=== PATIENT | male | born 1940 | race Caucasian/White ===

== ENCOUNTER 2017-12-29 09:17 | Outpatient (REF) | payer MEDICARE, BC, SELFPAY ==
[2017-12-29 23:01] LABS: ALT 43 U/L (12-78); AST 28 U/L (15-37); Albumin 4.7 g/dL (3.4-5.0); Alkaline Phosphatase 79 U/L (46-116); BUN 19 mg/dL (7-18); Bilirubin, Total 0.6 mg/dL (0.2-1.0); CREATININE 0.92 mg/dL (0.70-1.30); Calcium 9.5 mg/dL (8.5-10.1); Chloride 102 mmol/L (98-107); Glucose 115 mg/dL (70-100); Potassium 4.4 mmol/L (3.5-5.1); Sodium 140 mmol/L (136-145); Total Protein 8.3 g/dL (6.4-8.2)
== END 2017-12-29 09:37 ==
LOC: NCHCN 09:17
PROVIDERS: PCP Family Medicine; Visit Provider Family Medicine
DX: E11.9 Type 2 diabetes mellitus without complications (principal); E78.5 Hyperlipidemia, unspecified
CPT/HCPCS: 80053

== ENCOUNTER 2018-10-11 11:05 | Outpatient (REF) | payer MEDICARE, BC, SELFPAY ==
[2018-10-11 22:43] LABS: COMMENT (LAB VIEW ONLY) 73.75 mg/dL
== END 2018-10-11 11:25 ==
LOC: NCHCN 11:05
PROVIDERS: PCP Family Medicine; Visit Provider Family Medicine
DX: E11.9 Type 2 diabetes mellitus without complications (principal)
CPT/HCPCS: 82043; 82570

== ENCOUNTER 2018-10-24 15:20 | Outpatient (REF) | payer MEDICARE, BC, SELFPAY ==
[2018-10-24 21:30] LABS: Anion Gap 10.7 mmol/L (3-11); BUN 21 mg/dL (7-18); CO2 26.3 mmol/L (21.0-32.0); CREATININE 1.08 mg/dL (0.70-1.30); Calcium 9.4 mg/dL (8.5-10.1); Chloride 103 mmol/L (98-107); Glucose 109 mg/dL (70-100); Potassium 4.1 mmol/L (3.5-5.1); Sodium 140 mmol/L (136-145)
== END 2018-10-24 15:40 ==
LOC: NCHCN 15:20
PROVIDERS: PCP Family Medicine; Visit Provider Family Medicine
DX: E11.9 Type 2 diabetes mellitus without complications (principal)
CPT/HCPCS: 80048

== ENCOUNTER 2019-12-26 11:33 | Outpatient (REF) | payer MEDICARE, BC, SELFPAY ==
[2019-12-26 22:00] LABS: COMMENT (LAB VIEW ONLY) 98.45 mg/dL; Microalb ug/mg Crea 15.1 ug/mg Cr
== END 2019-12-26 11:53 ==
LOC: NCHCN 11:33
PROVIDERS: PCP Family Medicine; Visit Provider Family Medicine
DX: E11.9 Type 2 diabetes mellitus without complications (principal)
CPT/HCPCS: 82043; 82570

== ENCOUNTER 2020-05-28 15:24 | Outpatient (REF) | payer MEDICARE, BC, SELFPAY ==
[2020-05-28 15:05] LABS: ALT 24 U/L (16-63); AST 16 U/L (15-37); Albumin 3.9 g/dL (3.4-5.0); Alkaline Phosphatase 108 U/L (46-116); Anion Gap 10.7 mmol/L (3-11); BUN 25 mg/dL (7-18); Bilirubin, Total 0.3 mg/dL (0.2-1.0); CO2 24.3 mmol/L (21.0-32.0); CREATININE 1.4 mg/dL (0.70-1.30); Calcium 9.3 mg/dL (8.5-10.1); Chloride 104 mmol/L (98-107); Estimated GFR 49.01 (mL/min/1.73m2); Glucose 114 mg/dL (74-106); Potassium 5.1 mmol/L (3.5-5.1); Sodium 139 mmol/L (136-145); Total Protein 8.3 g/dL (6.4-8.2)
[2020-05-28 15:20] LABS: Hemoglobin A1C 7.3 % (<5.7)
== END 2020-05-28 15:25 | disposition home or self-care (01) ==
LOC: NCHCN 15:24
PROVIDERS: PCP Family Medicine; Visit Provider Family Medicine
DX: E11.9 Type 2 diabetes mellitus without complications (principal); C67.9 Malignant neoplasm of bladder, unspecified; E66.9 Obesity, unspecified
CPT/HCPCS: 80053; 83036

== ENCOUNTER 2021-07-15 14:59 | Outpatient (REF) | payer MEDICARE, BC, SELFPAY ==
[2021-07-15 17:02] LABS: COMMENT (LAB VIEW ONLY) 54.07 mg/dL; Microalb ug/mg Crea 9.4 ug/mg Cr
== END 2021-07-15 15:00 | disposition home or self-care (01) ==
LOC: NCHCN 14:59
PROVIDERS: PCP Family Medicine; Visit Provider Family Medicine
DX: E11.9 Type 2 diabetes mellitus without complications (principal)
CPT/HCPCS: 82043; 82570

== ENCOUNTER 2022-07-31 15:28 | Outpatient (REF) | payer MEDICARE, BC, SELFPAY ==
[2022-07-31 15:55] LABS: COMMENT (LAB VIEW ONLY) 84.77 mg/dL; Microalb ug/mg Crea 37.2 ug/mg Cr
== END 2022-07-31 15:29 | disposition home or self-care (01) ==
LOC: NCHCN 15:28
PROVIDERS: PCP Family Medicine; Visit Provider Family Medicine
DX: E11.9 Type 2 diabetes mellitus without complications (principal)
CPT/HCPCS: 82043; 82570

== ENCOUNTER 2023-02-16 11:17 | Outpatient (REF) | payer MEDICARE, BC, SELFPAY ==
--- OUTSIDE RECORDS SUMMARY | 2023-02-16 11:20 | XMS_ITS | CCD ---
Author Name Unknown Address [address] [place] [address] [phone] Organization Unknown Address [address] [place], [place] [id number] Care Team Providers Care Slip Operator Name Role Phone KEIRY KELLY Attending Physician [phone] Vital Signs Unknown or Not Available. Allergies Allergy Code Allergy Type Reaction Status No Known Drug Allergies 0 No known drug allergies Active Procedures Unknown or Not Available. History of Immunizations Unknown or Not Available. Problems Unknown or Not Available. Results COMPREHENSIVE METABOLIC PANE L (CMP) - Collect Date/Time: 04/17/2022 07:43 Test Name Code Test Result Test Units Test Ref Rang e GLUCOSE 2345-7 176 mg/dL L=70 H=116 BUN 3094-0 28 mg/dL L=6 H=25 CREATININE 2160-0 1.41 mg/dL L=0.67 H=1.17 SODIUM SERUM 2951-2 135 mmol/L L=136 H=145 POTASSIUM SERUM 2823-3 4.5 mmol/L L=3.4 H=5 .2 CHLORIDE SERUM 2075-0 100 mmol/L L=96 H=110 CARBON DIOXIDE (CO2) 2028-9 28 mmol/L L=22 H=34 ANION GAP 94136-8 7.2 mmol/L CALCIUM SERUM 52688-2 9.3 mg/dL L=8.2 H=10. 2 BILIRUBIN TOTAL 1975-2 0.3 mg/dL L=0.0 H=1 .3 ALK. PHOS. 6768-6 89 U/L L=46 H=116 SGOT (AST) 1920-8 27 U/L L=15 H=37 SGPT (ALT) 1742-6 38 U/L L=12 H=78 TOTAL PROTEIN 2885-2 9.1 gm/dL L=6.0 H=8.0 ALBUMIN 1751-7 4.3 gm/dL L=3.4 H=5.0 AGE 81 years eGFR (non-Afr.Amer.) 93806-5 48 mL/min eGFR (Afr-Azerbaijani) 45019-7 59 mL/min Active Medications Medication Code Dose Units Frequency Route Modificatio n Start Date/Time Finasteride 5MG Oral Tablet 325019 5 MILLIGRAMS 1700 ORAL 019 21:26 Prescription Detail TAKE 5 MILLIGRAMS ORAL 1700 Medications Administered During Visit Unknown or Not Available. Encounters Encounter Diagnosis Diagnosis Code Start Date Malignant neoplasm of urinary organ [id number] 04/17/2022 Social History Smoking Status Code Start Date End Date Never smoker [id number] Patient Decision Aids Unknown or Not Available. Discharge Instructions You were admitted to [facility] on 04/17/2022 22:08 with a principal diagnosis of Malignant neoplasm of urinary organ, unspecified You had the following tests done:COMPREHENSIVE METABOLIC PANEL (CMP) You were discharged from [facility] on 04/17/2022 22:08 Should you have any questions prior to discharge, please contact a member of your healthcare team. If you have left the hospital and have any questions, please contact your primary care physician. Chief Complaint and Reason For Visit Unknown or Not Available. Function Status Unknown or Not Available. Plan of Care Unknown or Not Available. Referral/Transition of Care Unknown or Not Available.
--- OUTSIDE RECORDS SUMMARY | 2023-02-16 11:20 | XMS_ITS | CCD ---
Author Name Unknown Address [address] [place] [address] [phone] Organization Unknown Address [address] [place], [place] [phone] Care Team Providers Care Kiln Car Repairer Name Role Phone CLEVE CHADWICK Celestine Attending Physician [phone] Vital Signs Unknown or Not Available. Allergies Allergy Code Allergy Type Reaction Status No Known Drug Allergies 0 No known drug allergies Active Procedures Unknown or Not Available. History of Immunizations Unknown or Not Available. Problems Unknown or Not Available. Results COMPREHENSIVE METABOLIC PANE L (CMP) - Collect Date/Time: 07/16/2022 07:41 Test Name Code Test Result Test Units Test Ref Rang e GLUCOSE 2345-7 172 mg/dL L=70 H=116 BUN 3094-0 26 mg/dL L=6 H=25 CREATININE 2160-0 1.51 mg/dL L=0.67 H=1.17 SODIUM SERUM 2951-2 138 mmol/L L=136 H=145 POTASSIUM SERUM 2823-3 4.8 mmol/L L=3.4 H=5 .2 CHLORIDE SERUM 2075-0 102 mmol/L L=96 H=110 CARBON DIOXIDE (CO2) 2028-9 28 mmol/L L=22 H=34 ANION GAP 10122-0 8.4 mmol/L CALCIUM SERUM 20350-4 9.3 mg/dL L=8.2 H=10. 2 BILIRUBIN TOTAL 1975-2 0.7 mg/dL L=0.0 H=1 .3 ALK. PHOS. 6768-6 101 U/L L=46 H=116 SGOT (AST) 1920-8 23 U/L L=15 H=37 SGPT (ALT) 1742-6 33 U/L L=12 H=78 TOTAL PROTEIN 2885-2 8.4 gm/dL L=6.0 H=8.0 ALBUMIN 1751-7 4.1 gm/dL L=3.4 H=5.0 AGE 81 years eGFR (non-Afr.Amer.) 86410-0 45 mL/min eGFR (Afr-[place]an) 23701-7 54 mL/min Active Medications Medication Code Dose Units Frequency Route Modificatio n Start Date/Time Finasteride 5MG Oral Tablet 287504 5 MILLIGRAMS 1700 ORAL 019 21:26 Prescription Detail TAKE 5 MILLIGRAMS ORAL 1700 Medications Administered During Visit Unknown or Not Available. Encounters Encounter Diagnosis Diagnosis Code Start Date Malignant neoplasm of urinary organ [id number] 07/16/2022 Social History Smoking Status Code Start Date End Date Never smoker [id number] Patient Decision Aids Unknown or Not Available. Discharge Instructions You were admitted to [facility] on 07/16/2022 07:32 with a principal diagnosis of Malignant neoplasm of urinary organ, unspecified You had the following tests done:COMPREHENSIVE METABOLIC PANEL (CMP) You were discharged from [facility] on 07/16/2022 07:32 Should you have any questions prior to [...]
--- OUTSIDE RECORDS SUMMARY | 2023-02-16 11:20 | XMS_ITS | CCD ---
Author Name Unknown Address [address] [place] [phone] Organization Unknown Address [address] [place] [address] [phone] Care Team Providers Care Durable Medical Equipment Repairer Name Role Phone MARTHA BAEZ Attending Physician [phone] MARTHA BAEZ Er Physician 2 [phone] FLORES Steel Registered Nurse [phone] Vital Signs Vital Sign Value Unit Date/Time Recent/Initial ? BMI (Body Mass Index) 29.8 kg/m^2 08/14/2021 05: 51 Initial VS Weight Measured 196 lbs 08/14/2021 05:51 Ini tial VS Height 68 in 08/14/2021 05:51 Initial VS BSA (Body Surface Area) 2.07 m^2 08/14/2021 0 5:51 Initial VS BP Systolic 145 mmHg 08/14/2021 05:51 Initial VS BP Diastolic 87 mmHg 08/14/2021 05:51 Initia l VS Respiratory Rate 20 bpm 08/14/2021 05:51 In itial VS Heart Rate 75 bpm 08/14/2021 05:51 Initial VS O2 % BldC Oximetry 98 % 08/14/2021 05:51 Initial VS Body Temperature 35.3 degrees 08/14/2021 05:51 In itial VS Allergies Allergy Code Allergy Type Reaction Status No Known Drug Allergies 0 No known drug allergies Active Procedures Unknown or Not Available. History of Immunizations Unknown or Not Available. Problems Problem Code Start Date Resolved Date Status Bladder cancer [id number] 08/14/2021 Resolved Diabetes 32248398 08/14/2021 Resolved High cholesterol 54706296 08/14/2021 Resolved Results Unknown or Not Available. Active Medications Unknown or Not Available. Medications Administered During Visit Unknown or Not Available. Encounters Encounter Diagnosis Diagnosis Code Start Date Contusion of lower back and pelvis, initial enco unter [id number] 08/14/2021 Social History Smoking Status Code Start Date End Date Never smoker [id number] Patient Decision Aids Unknown or Not Available. Discharge Instructions You were admitted to [facility] on 08/14/2021 05:43 with a principal diagnosis of Contusion of lower back and pelvis, initial encounter You were discharged from [facility] on 08/14/2021 06:15 Should you have any questions prior to discharge, please contact a member of your healthcare team. If you have left the hospital and have any questions, please contact your primary care physician. Chief Complaint and Reason For Visit Chief Complaint Date of Onset TAILBONE PAIN Function Status Unknown or Not Available. Plan of Care Unknown or Not Available. Referral/Transition of Care Unknown or Not Available.
--- OUTSIDE RECORDS SUMMARY | 2023-02-16 11:20 | XMS_ITS | CCD ---
Author Name Unknown Address [address] [place] [address] [phone] Organization Unknown Address [address] [place] [address] [phone] Care Team Providers Care Crayon Sawyer Name Role Phone KEIRY KELLY Attending Physician [phone] Vital Signs Unknown or Not Available. Allergies Allergy Code Allergy Type Reaction Status No Known Drug Allergies 0 No known drug allergies Active Procedures Unknown or Not Available. History of Immunizations Unknown or Not Available. Problems Unknown or Not Available. Results Unknown or Not Available. Active Medications Medication Code Dose Units Frequency Route Modificatio n Start Date/Time Finasteride 5MG Oral Tablet 227663 5 MILLIGRAMS 1700 ORAL 019 21:26 Prescription Detail TAKE 5 MILLIGRAMS ORAL 1700 Medications Administered During Visit Unknown or Not Available. Encounters Encounter Diagnosis Diagnosis Code Start Date Hydroureter N134 07/22/2022 Social History Smoking Status Code Start Date End Date Never smoker [id number] Patient Decision Aids Unknown or Not Available. Discharge Instructions You were admitted to [facility] on 07/22/2022 08:24 with a principal diagnosis of Hydroureter You were discharged from [facility] on 07/22/2022 08:24 Should you have any questions prior to discharge, please contact a member of your healthcare team. If you have left the hospital and have any questions, please contact your primary care physician. Chief Complaint and Reason For Visit Chief Complaint Date of Onset CYSTECTOMY HX OF TCC Function Status Unknown or Not Available. Plan of Care Unknown or Not Available. Referral/Transition of Care Unknown or Not Available.
--- OUTSIDE RECORDS SUMMARY | 2023-02-16 11:20 | XMS_ITS | CCD ---
Author Name Unknown Address [address] [place] [address] [phone] Organization Unknown Address [address] [place], [place] [phone] Care Team Providers Care Regional Clinical Research Associate Name Role Phone KEIRY KELLY Attending Physician [phone] Vital Signs Unknown or Not Available. Allergies Allergy Code Allergy Type Reaction Status No Known Drug Allergies 0 No known drug allergies Active Procedures Unknown or Not Available. History of Immunizations Unknown or Not Available. Problems Unknown or Not Available. Results COMPREHENSIVE METABOLIC PANE L (CMP) - Collect Date/Time: 10/06/2021 07:46 Test Name Code Test Result Test Units Test Ref Rang e GLUCOSE 2345-7 118 mg/dL L=70 H=116 BUN 3094-0 26 mg/dL L=6 H=25 CREATININE 2160-0 1.48 mg/dL L=0.67 H=1.17 SODIUM SERUM 2951-2 140 mmol/L L=136 H=145 POTASSIUM SERUM 2823-3 5.1 mmol/L L=3.4 H=5 .2 CHLORIDE SERUM 2075-0 104 mmol/L L=96 H=110 CARBON DIOXIDE (CO2) 2028-9 28 mmol/L L=22 H=34 ANION GAP 45937-3 8.3 mmol/L CALCIUM SERUM 23128-7 9.3 mg/dL L=8.2 H=10. 2 BILIRUBIN TOTAL 1975-2 0.5 mg/dL L=0.0 H=1 .3 ALK. PHOS. 6768-6 92 U/L L=46 H=116 SGOT (AST) 1920-8 24 U/L L=15 H=37 SGPT (ALT) 1742-6 34 U/L L=12 H=78 TOTAL PROTEIN 2885-2 8.3 gm/dL L=6.0 H=8.0 ALBUMIN 1751-7 4.4 gm/dL L=3.4 H=5.0 AGE 81 years eGFR (non-Afr.Amer.) 59520-6 46 mL/min eGFR (Afr-Kosovan) 98750-4 55 mL/min HEMOGRAM + PLATELET WO DIFF - Collect Date/Time: 10/06/2021 07:46 Test Name Code Test Result Test Units Test Ref Rang e WBC 6690-2 9.68 th/cmm L=5.00 H=10.00 NRBC % 45668-3 0.0 % L=0.0 H=0.0 NRBC abs count 39415-8 0.0 mil/cmm L=0.0 H=0. 0 RBC 789-8 4.27 mil/cmm L=4.30 H=6.20 HEMOGLOBIN 718-7 13.9 gm/dL L=13.0 H=17.0 HEMATOCRIT 4544-3 42 % L=45 H=52 MCV 787-2 99 fL L=82 H=92 MCH 785-6 32.6 pg L=27.0 H=31.0 MCHC 786-4 32.9 % L=32.0 H=36.0 RDW-SD 788-0 44.2 fL L=39.0 H=49.0 PLATELET COUNT 777-3 234 th/cmm L=150 H=45 0 Active Medications Medication Code Dose Units Frequency Route Modificatio n Start Date/Time Finasteride 5MG Oral Tablet 928448 5 MILLIGRAMS 1700 ORAL 019 21:26 Prescription Detail TAKE 5 MILLIGRAMS ORAL 1700 Medications Administered During Visit Unknown or Not Available. Encounters Encounter Diagnosis Diagnosis Code Start Date Malignant neoplasm of urinary organ [id number] 10/06/2021 Social History Smoking Status Code Start Date End Date Never smoker 053838252 Patient Decision Aids Unknown or Not Available. Discharge Instructions You were admitted to [facility] on 10/06/2021 23:20 with a principal diagnosis of Malignant neoplasm of urinary organ, unspecified You had the following tests done:COMPREHENSIVE METABOLIC PANEL (CMP)HEMOGRAM + PLATELET WO DIFF You were discharged from [facility] on 10/06/2021 23:20 Should you have any questions prior to [...]
--- OUTSIDE RECORDS SUMMARY | 2023-02-16 11:20 | XMS_ITS | CCD ---
Author Name Unknown Address [address] [place] [address] [id number] Organization Unknown Address [address] [place], [place] [phone] Care Team Providers Care Gas Analyst Name Role Phone KURT WHITEHEAD Attending Physician [phone] Vital Signs Unknown or Not Available. Allergies Allergy Code Allergy Type Reaction Status No Known Drug Allergies 0 No known drug allergies Active Procedures Unknown or Not Available. History of Immunizations Unknown or Not Available. Problems Problem Code Start Date Resolved Date Status Bladder cancer [id number] 08/14/2021 Resolved Diabetes 69947483 08/14/2021 Resolved High cholesterol 37370828 08/14/2021 Resolved Results LIPID PANEL* - Collect Date/ Time: 03/26/2021 07:51 Test Name Code Test Result Test Units Test Ref Rang e CHOLESTEROL 2093-3 140 mg/dL L=0 H=200 TRIGLYCERIDES 2571-8 52 mg/dL L=56 H=240 HDL 2085-9 50 mg/dL L=30 H=74 non-HDL-C 03342-6 90 mg/dL L=0 H=160 LDL (CALC) 85198-4 80 mg/dL L=0 H=130 % HDL 35.7 % Chol/HDL Ratio 9830-1 2.8 L=0.0 H=4. 9 CHD Relative Risk 0.6 x Avg L=0.0 H =1.0 LDL/HDL Ratio 91247-0 1.6 L=0.0 H=3.5 CHD Relative Risk. 0.5 x Avg L=0.0 H=1.0 FASTING STATUS: FASTING N/A Active Medications Medication Code Dose Units Frequency Route Modificatio n Start Date/Time Finasteride 5MG Oral Tablet 768743 5 MILLIGRAMS 1700 ORAL 019 21:26 Prescription Detail TAKE 5 MILLIGRAMS ORAL 1700 Medications Administered During Visit Unknown or Not Available. Encounters Encounter Diagnosis Diagnosis Code Start Date Essential hypertension [id number] Social History Smoking Status Code Start Date End Date Never smoker [id number] Patient Decision Aids Unknown or Not Available. Discharge Instructions You were admitted to [facility] on 03/26/2021 07:39 with a principal diagnosis of Essential (primary) hypertension You had the following tests done:LIPID PANEL* You were discharged from [facility] on 03/26/2021 07:39 Should you have any questions prior to [...]
--- OUTSIDE RECORDS SUMMARY | 2023-02-16 11:20 | XMS_ITS | CCD ---
Author Name Unknown Address [address] [place] [address] [phone] Organization Unknown Address [address] [place] [phone] Care Team Providers Care Vp Scientific Name Role Phone HANH GRAHAM Attending Physician [phone] HANH GRAHAM Er Physician 1 [phone] ANNA Sebastian Registered Nurse [phone] FLORES Steel Registered Nurse [phone] Vital Signs Vital Sign Value Unit Date/Time Recent/Initial ? BMI (Body Mass Index) 28.35 kg/m^2 11/17/2021 06: 38 Initial VS Weight Measured 192 lbs 11/17/2021 06:38 Ini tial VS Height 69 in 11/17/2021 06:38 Initial VS BSA (Body Surface Area) 2.06 m^2 11/17/2021 0 6:38 Initial VS BP Systolic 145 mmHg 11/17/2021 06:38 Initial VS BP Diastolic 67 mmHg 11/17/2021 06:38 Initia l VS Respiratory Rate 20 bpm 11/17/2021 06:38 In itial VS Heart Rate 67 bpm 11/17/2021 06:38 Initial VS O2 % BldC Oximetry 98 % 11/17/2021 06:38 Initial VS Body Temperature 35.1 degrees 11/17/2021 06:38 In itial VS Allergies Allergy Code Allergy Type Reaction Status No Known Drug Allergies 0 No known drug allergies Active Procedures Unknown or Not Available. History of Immunizations Unknown or Not Available. Problems Unknown or Not Available. Results Unknown or Not Available. Active Medications Unknown or Not Available. Medications Administered During Visit Unknown or Not Available. 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 Discharge Instructions You were admitted to [facility] on 11/17/2021 06:32 with a principal diagnosis of Hemorrhage of incontinent external stoma of urinary tract You were discharged from [facility] on 11/17/2021 07:28 Should you have any questions prior to discharge, please contact a member of your healthcare team. If you have left the hospital and have any questions, please contact your primary care physician. Chief Complaint and Reason For Visit Chief Complaint Date of Onset BLOOD IN OSTOMY 11/17/2021 Function Status Unknown or Not Available. Plan of Care Unknown or Not Available. Referral/Transition of Care Unknown or Not Available.
[2023-02-16 15:25] LABS: Calculated LDL 52 mg/dL (<100); Cholesterol 105 mg/dL (<200); HDL Cholesterol 44 mg/dL (40-60); Triglyceride 49 mg/dL (<150)
[2023-02-16 15:41] LABS: Hemoglobin A1C 6.7 % (<5.7)
== END 2023-02-16 11:18 | disposition home or self-care (01) ==
LOC: NCHCN 11:17
PROVIDERS: PCP Family Medicine; Visit Provider Family Medicine
DX: E11.9 Type 2 diabetes mellitus without complications (principal); Z00.00 Encounter for general adult medical examination without abnormal findings; E78.5 Hyperlipidemia, unspecified
CPT/HCPCS: 80061; 83036

== ENCOUNTER 2023-08-20 08:55 | Outpatient (REF) | payer MEDICARE, BC, SELFPAY ==
[2023-08-20 14:59] LABS: Microalb ug/mg Crea 33.3 ug/mg Cr
== END 2023-08-20 08:56 | disposition home or self-care (01) ==
LOC: NCHCN 08:55
PROVIDERS: PCP Family Medicine; Visit Provider Family Medicine
DX: E11.9 Type 2 diabetes mellitus without complications (principal)
CPT/HCPCS: 82043; 82570

== ENCOUNTER 2023-11-23 15:03 | Outpatient (REF) | payer MEDICARE, BC, SELFPAY ==
[2023-11-23 17:31] LABS: ALT 36 U/L (16-63); AST 26 U/L (15-37); Albumin 4.1 g/dL (3.4-5.0); Alkaline Phosphatase 68 U/L (46-116); Anion Gap 7.8 mmol/L (3-11); BUN 24 mg/dL (7-18); Bilirubin, Total 0.42 mg/dL (0.2-1.0); CO2 27.2 mmol/L (21.0-32.0); CREATININE 1.4 mg/dL (0.70-1.30); Calcium 9.7 mg/dL (8.5-10.1); Calculated LDL 61 mg/dL (<100); Chloride 103 mmol/L (98-107); Cholesterol 125 mg/dL (<200); Estimated GFR 50.18 (mL/min/1.73m2); Glucose 130 mg/dL (74-106); HDL Cholesterol 55 mg/dL (40-60); Potassium 5.2 mmol/L (3.5-5.1); Sodium 138 mmol/L (136-145); Triglyceride 49 mg/dL (<150)
== END 2023-11-23 15:04 | disposition home or self-care (01) ==
LOC: NCHCN 15:03
PROVIDERS: PCP Family Medicine; Visit Provider Family Medicine
DX: E78.5 Hyperlipidemia, unspecified (principal)
CPT/HCPCS: 80053; 80061

== ENCOUNTER 2024-08-22 12:04 | Outpatient (REF) | payer MEDICARE, BC, SELFPAY ==
[2024-08-22 21:40] LABS: COMMENT (LAB VIEW ONLY) 14.48 mg/dL; Microalb ug/mg Crea 111.9 ug/mg Cr
== END 2024-08-22 12:05 | disposition home or self-care (01) ==
LOC: NCHCN 12:04
PROVIDERS: PCP Family Medicine; Visit Provider Family Medicine
DX: E11.9 Type 2 diabetes mellitus without complications (principal)
CPT/HCPCS: 82043; 82570

== ENCOUNTER 2024-11-30 09:51 | Outpatient (REF) | payer MEDICARE, BC, SELFPAY ==
[2024-11-30 15:58] LABS: ALT 34 U/L (16-63); AST 25 U/L (15-37); Albumin 4.1 g/dL (3.4-5.0); Alkaline Phosphatase 57 U/L (46-116); Anion Gap 7.7 mmol/L (3-11); BUN 28 mg/dL (7-18); Bilirubin, Total 0.4 mg/dL (0.2-1.0); CO2 29.3 mmol/L (21.0-32.0); Calcium 9.5 mg/dL (8.5-10.1); Calculated LDL 64 mg/dL (<100); Chloride 105 mmol/L (98-107); Cholesterol 126 mg/dL (<200); Estimated GFR 49.87 (mL/min/1.73m2); Glucose 152 mg/dL (74-106); HDL Cholesterol 57 mg/dL (>or=40); Potassium 5.0 mmol/L (3.5-5.1); Sodium 142 mmol/L (136-145); Total Protein 8.0 g/dL (6.4-8.2); Triglyceride 28 mg/dL (<150)
== END 2024-11-30 09:52 | disposition home or self-care (01) ==
LOC: NCHCN 09:51
PROVIDERS: PCP Family Medicine; Visit Provider Family Medicine
DX: E78.5 Hyperlipidemia, unspecified (principal)
CPT/HCPCS: 80053; 80061

== ENCOUNTER 2025-02-02 13:02 | Outpatient (REF) | payer MEDICARE, BC, SELFPAY ==
--- NOTE | 2025-02-02 12:17 | SKI_PTH ---
PATIENT: Lux Nunez [facility] U#:[id number] AGE/SX: 84/M ROOM: RE02/02/[address]: Sarita Gan : 1940 BED: DIS: 02/02/2025 SPEC #: [id number] RECD: 02/02/25 16:15 STATUS: ANGE RENile #: [id number] WILL: 02/02/25 12:[address]: Sarita Gan DEPT: Surgical Specimen RECD BY: Cheyenne Beard Tissues: 1 - SKIN BIOPSY(SHAVE/PUNCH) Procedures: IMMUNOPEROXIDASE STAIN SKIN LEVEL 4 Comments: [id number]
== END 2025-02-02 13:03 | disposition home or self-care (01) ==
LOC: NCHCN 13:02
PROVIDERS: PCP Family Medicine; Visit Provider Family Medicine
DX: D22.5 Melanocytic nevi of trunk (principal); D48.5 Neoplasm of uncertain behavior of skin
CPT/HCPCS: 88305; 88361